=== PATIENT | female | born 1995 | race Caucasian/White ===

== ENCOUNTER → 2017-03-26 | Outpatient (REF) | payer OTHER | LOC: M LAB REF 13:08 | DX: R35.0 Frequency of micturition (principal) ==

== ENCOUNTER → 2020-07-07 | Outpatient (CLI) | payer BC ==
[2020-07-07 10:19] LABS: BASO % 0.2 % (0.0-1.0); EOS # 0.1 10^3/uL (0.0-0.5); EOS % 1.5 % (0.0-3.0); HEMATOCRIT 40.2 % (36.0-47.0); HEMOGLOBIN 13.5 g/dl (12.0-15.5); LYMPH % 38.2 % (24.0-44.0); MEAN CORPUSCULAR HEMOGLOBIN 30.5 pg (27.0-33.0); MEAN CORPUSCULAR HGB CONC 33.6 g/dl (32.0-36.5); MEAN CORPUSCULAR VOLUME 90.7 fl (80.0-96.0); MONO # 0.6 10^3/uL (0.0-0.8); MONO % 10.7 % (2.0-8.0); NEUTROPHILS # 2.6 10^3/uL (1.5-8.5); NEUTROPHILS % 49.2 % (36.0-66.0); PLATELET COUNT, AUTOMATED 288 10^3/uL (150-450); RED BLOOD COUNT 4.43 10^6/uL (4.00-5.40); WHITE BLOOD COUNT 5.3 10^3/uL (4.0-10.0)
[2020-07-07 10:58] LABS: BLOOD UREA NITROGEN 8 MG/DL (7-18); CALCIUM LEVEL 9.3 MG/DL (8.5-10.1); CARBON DIOXIDE LEVEL 28 MEQ/L (21-32); CHLORIDE LEVEL 107 MEQ/L (98-107); FERRITIN 58 NG/ML (8-252); FREE T4 0.96 NG/DL (0.76-1.46); GLOMERULAR FILTRATION RATE > 60.0 (>60); GLUCOSE, FASTING 88 MG/DL (70-100); IRON (FE) 79 UG/DL (50-170); PERCENT SATURATION 24.6 % (13.2-45.0); POTASSIUM SERUM 4.2 MEQ/L (3.5-5.1); SODIUM LEVEL 141 MEQ/L (136-145); TOTAL IRON BINDING CAPACITY 321 UG/DL (250-450)
[2020-07-10 10:43] LABS: THYROID PEROXIDASE ANTIBODY > 1300.0 U/ML (<60.0)
[2020-07-10 11:01] LABS: TOTAL 25(OH) VITAMIN D 21.5 NG/ML (30.0-100.0)
== END ==
LOC: M LAB 09:45
PROVIDERS: ATTEND Nurse Practitioner Family
DX: R53.83 Other fatigue (principal); L65.9 Nonscarring hair loss, unspecified

== ENCOUNTER → 2022-06-24 | Outpatient (CLI) | payer BC ==
[2022-06-24 15:54] LABS: HEMATOCRIT 35.1 % (36.0-47.0); MEAN CORPUSCULAR HEMOGLOBIN 31.1 pg (27.0-33.0); MEAN CORPUSCULAR HGB CONC 34.2 g/dl (32.0-36.5); MEAN CORPUSCULAR VOLUME 90.9 fl (80.0-96.0); PLATELET COUNT, AUTOMATED 288 10^3/uL (150-450); RED BLOOD COUNT 3.86 10^6/uL (4.00-5.40); WHITE BLOOD COUNT 8.2 10^3/uL (4.0-10.0)
[2022-06-24 16:24] LABS: FREE T4 1.14 NG/DL (0.89-1.76); THYROID STIMULATING HORMONE 2.615 uIU/ML (0.55-4.78)
[2022-06-24 16:54] LABS: HIV 1&2 SCREEN NEGATIVE (NEGATIVE)
[2022-06-24 17:02] LABS: HEPATITIS C VIRUS ABY INDEX < 0.0 INDEX (<0.8)
[2022-06-24 17:20] LABS: GC DNA AMPLIFICATION NEGATIVE (NEGATIVE)
== END ==
LOC: M PLALAB 14:24
PROVIDERS: ATTEND Advanced Practice Midwife
DX: Z34.01 Encounter for supervision of normal first pregnancy, first trimester (principal); Z3A.00 Weeks of gestation of pregnancy not specified

== ENCOUNTER → 2022-10-27 | Outpatient (CLI) | payer BC ==
[2022-10-27 20:37] LABS: HEMOGLOBIN 10.1 g/dl (12.0-15.5); MEAN CORPUSCULAR HEMOGLOBIN 31.6 pg (27.0-33.0); MEAN CORPUSCULAR HGB CONC 32.6 g/dl (32.0-36.5); MEAN CORPUSCULAR VOLUME 96.9 fl (80.0-96.0); PLATELET COUNT, AUTOMATED 267 10^3/uL (150-450); WHITE BLOOD COUNT 8.9 10^3/uL (4.0-10.0)
== END ==
LOC: M PLALAB 14:34
PROVIDERS: ATTEND Advanced Practice Midwife
DX: Z34.02 Encounter for supervision of normal first pregnancy, second trimester (principal)

== ENCOUNTER → 2022-12-24 | Outpatient (REF) | payer BC | LOC: M SFHCWAGY 12:54 | PROVIDERS: ATTEND Obstetrics & Gynecology | DX: O99.283 Endocrine, nutritional and metabolic diseases complicating pregnancy, third trimester (principal); Z3A.00 Weeks of gestation of pregnancy not specified ==

== ENCOUNTER → 2022-12-29 | Outpatient (CLI) | payer BC ==
[2022-12-29 17:10] LABS: HEMATOCRIT 30.5 % (36.0-47.0); HEMOGLOBIN 10.1 g/dl (12.0-15.5); MEAN CORPUSCULAR HEMOGLOBIN 30.2 pg (27.0-33.0); MEAN CORPUSCULAR HGB CONC 33.1 g/dl (32.0-36.5); MEAN CORPUSCULAR VOLUME 91.3 fl (80.0-96.0); PLATELET COUNT, AUTOMATED 305 10^3/uL (150-450); RED BLOOD COUNT 3.34 10^6/uL (4.00-5.40); WHITE BLOOD COUNT 8.3 10^3/uL (4.0-10.0)
[2022-12-29 17:33] LABS: TOTAL PROTEIN,RANDOM URINE 6.1 MG/DL (0.0-14.0)
[2022-12-29 17:35] LABS: URIC ACID 6.6 MG/DL (3.1-7.8)
[2022-12-29 17:37] LABS: LDH LACTATE DEHYDROGENASE 192 U/L (120-246)
[2022-12-29 17:38] LABS: ALT/SGPT 9 U/L (7.0-40); AST/SGOT 42 U/L (<34); BILIRUBIN,TOTAL 0.2 MG/DL (0.3-1.2); CREATININE FOR GFR 0.59 MG/DL (0.55-1.30); CREATININE,RANDOM URINE 37.8 MG/DL; GLOMERULAR FILTRATION RATE > 60.0 (>60)
== END ==
LOC: M PLALAB 15:27
PROVIDERS: ATTEND Obstetrics & Gynecology
DX: O16.9 Unspecified maternal hypertension, unspecified trimester (principal)

== ENCOUNTER 2023-01-12 01:14 | Inpatient (IN) | payer BC ==
[2023-01-12] VITALS (43 sets, daily range): BP systolic 107–170; BP diastolic 57–92; O2SAT 99
[~2023-01-12] VITALS: Ht 160 cm; Wt 101.1 kg
[2023-01-12] MEDS ORDERED: LEVO50TA5 PO (01:33)
[2023-01-12] MEDS ORDERED: PRENTAB9 PO (01:33)
[2023-01-12] MEDS ORDERED: HOME MED LIST COMPLETE! XX SCH (01:35)
[2023-01-12] MEDS ORDERED: LACTATED RINGER'S 1000 ML IV STA (04:36)
[2023-01-12] MEDS ORDERED: CARBOPROST TROMETHAMINE 250 MCG/ML AMP IM PRN (04:40)
[2023-01-12] MEDS ORDERED: METHYLERGONOVINE MALEATE 0.2MG/ML 1ML VIAL IM PRN (04:40)
[2023-01-12] MEDS ORDERED: LIDOCAINE 1% MDV 20ML VIAL INFIL PRN (04:40)
[2023-01-12] MEDS ORDERED: TRANEXAMIC ACID INJection 1,000 MG in NS 100 ML IV PRN (04:40)
[2023-01-12] MEDS ORDERED: OXYTOCIN DRIP 30 UNITS in IV 1 EA IV PRN (04:40)
[2023-01-12 04:43] LABS: HEMOGLOBIN 10.4 g/dl (12.0-15.5); MEAN CORPUSCULAR HEMOGLOBIN 30.1 pg (27.0-33.0); MEAN CORPUSCULAR HGB CONC 33.5 g/dl (32.0-36.5); MEAN CORPUSCULAR VOLUME 89.9 fl (80.0-96.0); PLATELET COUNT, AUTOMATED 294 10^3/uL (150-450); RED BLOOD COUNT 3.45 10^6/uL (4.00-5.40); WHITE BLOOD COUNT 9.3 10^3/uL (4.0-10.0)
[2023-01-12] MEDS: LEVOTHYROXINE 75MCG TABLET (0.075MG) PO SCH (07:32)
[2023-01-12] MEDS ORDERED: OXYTOCIN DRIP 30 UNITS in IV 1 EA IV SCH (08:05)
[2023-01-12] MEDS: LR 1,000 ML IV SCH ×2 (08:58→19:35)
[2023-01-12] MEDS ORDERED: EPIDURAL/PCA KEYS XX PRN (14:45)
[2023-01-12] MEDS ORDERED: NALOXONE INJ 0.4MG/1ML VIAL IV PRN (14:45)
[2023-01-12] MEDS ORDERED: ONDANSETRON 4MG 2ML VIAL IV PRN (14:45)
[2023-01-12] MEDS ORDERED: LR 500 ML IV PRN (14:45)
[2023-01-12] MEDS ORDERED: ePHEDrine SULFATE 25 MG/5 ML(5MG/ML) SYRINGE IVP PRN (14:45)
[2023-01-12] MEDS ORDERED: diphenhydrAMINE 50MG/ML VIAL IV PRN (14:45)
[2023-01-12] MEDS: FENTANYL/ROPIVACAINE/NACL BAG 100 ML EPIDURAL SCH (15:21)
[2023-01-13] VITALS (22 sets, daily range): BP systolic 118–150; BP diastolic 61–95; O2SAT 96
[2023-01-13] MEDS: FENTANYL/ROPIVACAINE/NACL BAG 100 ML EPIDURAL SCH (00:33)
[2023-01-13] MEDS: LR 1,000 ML IV SCH (04:25)
[2023-01-13 06:41] LABS: CORD GAS ABE V -4.5; CORD GAS HCO3 V 20.2 MMOL/L; CORD GAS O2 SAT V 80.4 %; CORD GAS PCO2 V 36.9 mmHg; CORD GAS PH V 7.356 UNITS; CORD GAS PO2 V 36.3 mmHg; CORD GAS SBC V 20.4 MMOL/L; CORD GAS TCO2 V 21.3 MMOL/L
[2023-01-13] MEDS: LEVOTHYROXINE 75MCG TABLET (0.075MG) PO SCH (07:27)
[2023-01-13] MEDS ORDERED: AMPICILLIN SOD/SULBACTAM SOD 3 GM in D5W MINI-BAG PLUS 100 ML IV ONE (07:45)
[2023-01-13] MEDS ORDERED: MOM 30ML SUSPENSION UDC PO PRN (08:05)
[2023-01-13] MEDS ORDERED: RHOGAM 300MCG (1500IU) INJ IM SCH (08:05)
[2023-01-13] MEDS ORDERED: ACETAMINOPHEN 500 MG TAB PO PRN (08:05)
[2023-01-13] MEDS ORDERED: ANUSOL HC CREAM 30GM TOP PRN (08:05)
[2023-01-13] MEDS ORDERED: ACETAMINOPHEN TAB 650MG DOSE (2X325MG) PO PRN (08:05)
[2023-01-13] MEDS ORDERED: METHYLERGONOVINE MALEATE 0.2 MG TAB PO PRN (08:05)
[2023-01-13] MEDS ORDERED: DIBUCAINE 1% OINTMENT 30GM TOP PRN (08:05)
[2023-01-13] MEDS: IBUPROFEN 800 MG TAB PO PRN (08:36)
[2023-01-13] MEDS: PRENATAL VITAMINS CHEWABLE TABLET PO SCH (09:00)
[2023-01-14 06:35] VITALS: BP 119/72; O2SAT 97
[2023-01-14 06:43] LABS: HEMATOCRIT 23.1 % (36.0-47.0); HEMOGLOBIN 7.5 g/dl (12.0-15.5); MEAN CORPUSCULAR HEMOGLOBIN 29.9 pg (27.0-33.0); MEAN CORPUSCULAR HGB CONC 32.5 g/dl (32.0-36.5); PLATELET COUNT, AUTOMATED 201 10^3/uL (150-450); RED BLOOD COUNT 2.51 10^6/uL (4.00-5.40); WHITE BLOOD COUNT 11.8 10^3/uL (4.0-10.0)
[2023-01-14] MEDS: DOCUSATE SODIUM 100MG CAPSULE PO PRN (08:18)
[2023-01-14] MEDS: PRENATAL VITAMINS CHEWABLE TABLET PO SCH (08:18)
[2023-01-14] MEDS: LEVOTHYROXINE 75MCG TABLET (0.075MG) PO SCH (08:18)
[2023-01-14] MEDS: IBUPROFEN 600MG TAB PO PRN ×4 (08:19→21:08)
[2023-01-14 18:00] VITALS: BP 134/84; O2SAT 98
[2023-01-15] MEDS: LEVOTHYROXINE 75MCG TABLET (0.075MG) PO SCH (05:30)
[2023-01-15 06:00] VITALS: BP 135/73; O2SAT 97
[2023-01-15] MEDS: PRENATAL VITAMINS CHEWABLE TABLET PO SCH (08:05)
[2023-01-15] MEDS: IBUPROFEN 800 MG TAB PO PRN (08:05)
[2023-01-15] MEDS: DOCUSATE SODIUM 100MG CAPSULE PO PRN (08:05)
[2023-01-15] MEDS ORDERED: MEASLES,MUMPS,RUBELLA VACCINE INJ (MMR-II) SC.IMMUN ONE (09:00)
[2023-01-15] MEDS ORDERED: ACET-683 PO (09:28)
[2023-01-15] MEDS ORDERED: IBUP80TA PO (09:28)
== END 2023-01-15 14:45 | disposition home or self-care (01) | DRG 541 ==
LOC: M LDO 01:14 → M LDI 04:05 → M OBS 01-13 09:36
PROVIDERS: ADMIT Obstetrics & Gynecology; ATTEND Advanced Practice Midwife
PROC: 10E0XZZ Delivery of Products of Conception, External Approach (ICD-10-PCS; principal; 2023-01-13)
PROC: 10D17Z9 Manual Extraction of Products of Conception, Retained, Via Natural or Artificial Opening (ICD-10-PCS; 2023-01-13)
DX: O99.284 Endocrine, nutritional and metabolic diseases complicating childbirth (principal); E06.3 Autoimmune thyroiditis; Z79.890 Hormone replacement therapy; O69.81X0 Labor and delivery complicated by cord around neck, without compression, not applicable or unspecified; O77.0 Labor and delivery complicated by meconium in amniotic fluid; Z37.0 Single live birth; Z3A.39 39 weeks gestation of pregnancy; O72.0 Third-stage hemorrhage

== ENCOUNTER → 2023-03-05 | Outpatient (REF) | payer BC ==
[~2023-03-05] MED LIST: ACET-683 PO; IBUP80TA PO; LEVO50TA5 PO; PRENTAB9 PO
== END ==
LOC: M LAB REF 17:21
PROVIDERS: ATTEND Nurse Practitioner Family
DX: Z12.4 Encounter for screening for malignant neoplasm of cervix (principal)
CPT/HCPCS: 87624; G0123